=== PATIENT | female | born 1950 | race Caucasian/White ===

== ENCOUNTER → 2018-07-30 | Outpatient (CLI) | payer OTHER ==
[~2018-07-30] MED LIST: ELMIRON; ESCI10; IBUP800; LEVFLO500 PO; METF500; OXYACE5T PO; PIOG15; SULTRIDS
== END | disposition home or self-care (01) ==
LOC: LAB 18:21 → LAB SHORT 18:21
DX: N39.0 Urinary tract infection, site not specified (principal)
CPT/HCPCS: 87077; 87086; 87186

== ENCOUNTER → 2019-07-22 | Outpatient (CLI) | payer OTHER ==
[~2019-07-22] MED LIST changes: +ALBU3IS; +INSULANPEN; +Novolog100 UNIT/1; +PAROXETINE CR25 MG; +PROAIR DIGIHAL90 MCG
== END ==
LOC: LAB SHORT 18:13 → LAB 18:13
DX: N39.0 Urinary tract infection, site not specified (principal)
CPT/HCPCS: 87077; 87086; 87186